=== PATIENT | female | born 1965 | race Caucasian/White ===

== ENCOUNTER → 2018-03-29 | Outpatient (CLI) | payer OTHER ==
[2018-03-29 12:47] LABS: ANION GAP 9 mmol/L (5-15); CHLORIDE 111 mmol/L (98-107)
[2018-03-29 12:51] LABS: ALANINE AMINOTRANSFERASE 18 U/L (12-78); ALKALINE PHOSPHATASE 123 U/L (45-117); BILIRUBIN,TOTAL 0.2 mg/dL (0.2-1.0); CHOL/HDL RATIO 2.7; CHOLESTEROL, TOTAL 157 mg/dL (140-239); CREATININE 0.83 mg/dL (0.55-1.02); HDL CHOL % 38 % (28-40); HDL CHOLESTEROL (DIRECT) 59 mg/dL (40-60); LDL CHOLESTEROL,CALCULATED 68 mg/dL (54-169); LDL/HDL RATIO 1.2 (0.5-3.0); TOTAL PROTEIN 7.6 g/dL (6.4-8.2); TRIGLYCERIDES 151 mg/dL (50-200); VLDL CHOLESTEROL 30 mg/dL (0-25)
[2018-03-29 12:52] LABS: HEMOGLOBIN A1C 5.6 % (4.2-6.3)
== END | disposition home or self-care (01) ==
LOC: CFH 11:26
PROVIDERS: ATTEND Family Medicine
DX: R73.01 Impaired fasting glucose (principal)
CPT/HCPCS: 36415; 80053; 80061; 83036

== ENCOUNTER → 2018-04-17 | Outpatient (CLI) | payer OTHER | END | disposition home or self-care (01) | LOC: CFH 15:27 | PROVIDERS: ATTEND Obstetrics & Gynecology | DX: Z12.31 Encounter for screening mammogram for malignant neoplasm of breast (principal); N95.0 Postmenopausal bleeding; Z85.3 Personal history of malignant neoplasm of breast | CPT/HCPCS: 76830; 77067 ==

== ENCOUNTER 2018-05-28 13:43 | Emergency (ER) | payer OTHER ==
[~2018-05-28] VITALS: Ht 175.3 cm; Wt 95.0 kg
[2018-05-28 13:58] VITALS: BP 106/70
[2018-05-28] MEDS ORDERED: KETOROLAC 30 MG/1 ML ONE (14:19)
[2018-05-28] MEDS ORDERED: KETOROLAC 30 MG/1 ML IM ONE (14:30)
--- NOTE | 2018-05-28 15:18 | NUR ---
Declined bruno wrap. Wearing own brace from home. Crutches teaching/return demo done.
== END 2018-05-28 15:20 | disposition home or self-care (01) ==
LOC: ED 15:10
DX: M17.31 Unilateral post-traumatic osteoarthritis, right knee (principal); M13.161 Monoarthritis, not elsewhere classified, right knee; M25.461 Effusion, right knee; Z85.3 Personal history of malignant neoplasm of breast
CPT/HCPCS: 73564; 96372; 99283; J1885

== ENCOUNTER → 2019-11-15 | Outpatient (CLI) | payer OTHER | END | disposition home or self-care (01) | LOC: CFH 10:26 | PROVIDERS: ATTEND Obstetrics & Gynecology | DX: R10.2 Pelvic and perineal pain (principal) | CPT/HCPCS: 76830 ==